=== PATIENT | male | born 1955 | race Caucasian/White ===

== ENCOUNTER 2024-06-08 03:44 | Emergency (ER) | payer OTHER, SELFPAY ==
--- NOTE | ~2024-06-08 | XR_ITS ---
EXAMINATION: XR chest 1V portable DATE: 06/08/2024 04:26 INDICATION: Chest pain TECHNIQUE: frontal view of the chest was obtained. COMPARISON: Chest radiograph dated 01/01/2010 FINDINGS: Mild increased initial pattern mid to lower and right lower lung zones. No pleural effusion or pneumo thorax. The cardiomediastinal silhouette is within normal limits for AP technique. IMPRESSION: 1. Mild increased initial pattern in the left mid to lower and right lower lung zone consistent with mild pulmonary edema with differential including less likely atelectasis or pneumonia. Reviewed, dictated and finalized at location A. DING CLEANER IMPRESSION: 1. Mild increased initial pattern in the left mid to lower and right lower lung zone consistent with mild pulmonary edema with differential including less lik tita atelectasis or pneumonia.
--- NOTE | ~2024-06-08 | CT_ITS ---
EXAMINATION: CTA chest PE protocol DATE: 06/08/2024 05:53 INDICATION: Chest pain TECHNIQUE: Computed tomography (CT) pulmonary angiogram of the chest was performed with 100 mL Omnipa que-350 intravenous contrast. Additional 3D reconstructions utilizing coronal maximum intensity proje ction (MIP) were performed. Automated exposure control and iterative reconstruction technique were em ployed. The dose-length product was 505.28 mGy-cm. COMPARISON: None FINDINGS: No pulmonary embolism. Mild emphysema. Consolidation in the superior segment of the lingula, a couple smaller regions of consolidation and groundglass opacities in the basilar left lower lobe and region s of tree-in-bud opacities in the right lower lobe consistent with multifocal pneumonia. Calcified ri ght upper lobe nodule consistent with old granulomatous disease. Diffuse bronchial wall thickening. H eart size is normal. No pericardial effusion. Thoracic aorta is normal in caliber. No pathologically enlarged thoracic lymphadenopathy. Visualized upper abdomen is unremarkable. Severe lower cervical an d moderate thoracic spondylosis. IMPRESSION: 1. No pulmonary embolism. 2. Bronchitis and multifocal pneumonia. Reviewed, dictated and finalized at location A. S MANAGER
[2024-06-08 03:44] VITALS: BP 120/85; PULSE 79; RESP 13; TEMP 36.5; O2SAT 96
[2024-06-08 03:49] VITALS: PULSE 75; O2SAT 97
--- NOTE | 2024-06-08 03:49 | ECG_ITS ---
Test Date: 2024-06-08 03:53:52 Measurements Intervals [place] Rate: 72 P: 0 OR: 0 QRS: 62 QRSD: 114 T: 51 QT: 418 QTc: 460 Interpretive Statements SINUS RHYTHM INTRAVENTRICULAR CONDUCTION DELAY BORDERLINE ST ABNORMALITY- INFERIOR LEADS BASELINE ARTIFACT- I, II, III, AVR, AVL, AVF, V1-V6 BORDERLINE ECG No previous ECG available for comparison Electronically Signed On 06-08-2024 06:19:23 INSPECTOR AIDE by Marc De La Rosa D.O.
[2024-06-08 03:57] LABS: Basophils Absolute Auto 0.1 K/mm3 (0.0-0.1); Basophils Percent Auto 0.7 % (0.2-1.2); Eosinophils Absolute Auto 0.2 K/mm3 (0-0.3); Eosinophils Percent Auto 1.5 % (0-4.4); Hemoglobin 11.1 g/dL (14.0-18.0); Immature Granulocyte Absolute 0.05 K/mm3 (0.00-0.031); Immature Granulocyte Percent A 0.4 % (0-0.5); Lymphocytes Absolute Auto 1.81 K/mm3 (0.9-3.2); Lymphocytes Percent Auto 13.5 % (18.3-44.2); Mean Corpuscular HGB Conc 32.6 g/dl (32-36); Mean Corpuscular Hemoglobin 29.8 pg (26-34); Mean Corpuscular Volume 91.4 fl (80-100); Mean Platelet Volume 10.7 fl (7.4-10.4); Monocytes Absolute Auto 1.4 K/mm3 (0.1-0.6); Monocytes Percent Auto 10.5 % (2.6-8.5); Neutrophils Absolute Auto 9.9 K/mm3 (1.3-6.7); Neutrophils Percent Auto 73.4 % (45.5-73.1); Platelet Count Result 328 k/mm3 (150-375); Red Blood Count 3.72 M/mm3 (4.6-6.20); Red Cell Distribution Width 14.6 % (11.5-14.5); White Blood Count 13.5 K/mm3 (4.5-10.0)
[2024-06-08] MEDS: MORPHINE SULFATE (*CRX) 4 MG/ML INJ IV PUSH (03:58)
--- NOTE | 2024-06-08 04:02 | ED.GENADULT ---
HPI - General Adult General Chief complaint: Chest Pain <Michael Galarza MD - Last Filed: 06/08/24 06:13> Stated complaint: CHEST PAIN <Michael Galarza MD - Last Filed: 06/08/24 06:13> Time Seen by Provider: 06/08/24 03:47 <Michael Galarza MD - Last Filed: 06/08/24 06:13> History of Present Illness HPI narrative: Patient is a 68-year-old gentleman who presents emergency department with chief complaint of chest pain. Patient states that he started having left-sided chest pain called EMS was given aspirin and use nitroglycerin in route. Patient reports he has history of COPD reports he has no prior history of cardiac disease the patient reports the pain is a squeezing like pain and also has a sharp component. The patient reports no trauma denies cough or respiratory symptoms. <Michael Galarza MD - Last Filed: 06/08/24 06:13> Related Data Allergies/adverse reactions: Allergies Allergy/AdvReac Type Severity Reaction Status Date / Time No Known Allergies Allergy Unknown Verified 06/08/24 03:48 <Michael Galarza MD - Last Filed: 06/08/24 06:13> Review of Systems Review of Systems: A 10 system review of systems was completed on the patient and is negative except for what is stated in the HPI. Nursing and ancillary documentation was reviewed. <Michael Galarza MD - Last Filed: 06/08/24 06:13> Exam Narrative: GENERAL: Well-appearing, well-nourished, and in no acute distress. HEAD: Normocephalic, atraumatic. EYES: PERRLA and EOMI. ENT: Nares clear, no rhinorrhea or epistaxis. Mucous membranes moist. NECK: Supple. CHEST: Clear to auscultation. No respiratory distress. HEART: Regular rate and rhythm. No murmur heard. Normal peripheral pulses. ABDOMEN: Soft, nontender, nondistended, normal active bowel sounds. EXTREMITIES: Normal range of motion. No edema. SKIN: Warm, dry, no rash. NEURO: No focal deficits. Alert and oriented x3. PSYCH: Normal mood and affect. <Michael Galarza MD - Last Filed: 06/08/24 06:13> Course Course Emergency Course: Patient is signed out to me pending 2nd troponin as well as interpretation of CT scan. Second troponin remains within normal limits. CT scan does show multifocal pneumonia as well as bronchitis. Patient is reassessed at bedside approximately 735. He states he is starting to have some chest pain again. Will order analgesic medication for this. his CURB65 score is 2 and we discussed that either inpatient admission or outpatient care with close follow-up would be a reasonable choice. Patient has family members at bedside and he states he would prefer to trial outpatient therapy. he has care through the [place] where he can follow up. calculated DRIP score = 2 (for underlying resp condition and being on an H2/PPI). Will give azithromycin, especially given underlying COPD. First dose given here with the rest of the course prescribed. Discharged in stable condition. <Jenny Armendariz MD - Last Filed: 06/08/24 18:14> Vital Signs Vital signs: Vital Signs Temperature 97.7 F 06/08/24 03:44 Pulse Rate 79 06/08/24 03:44 Respiratory Rate 13 06/08/24 03:44 Blood Pressure 120/85 06/08/24 03:44 Pulse Oximetry 96 06/08/24 03:44 Oxygen Delivery Room Air 06/08/24 03:44 Temperature 97.7 F 06/08/24 03:44 Pulse Rate 65 06/08/24 07:15 Respiratory Rate 17 06/08/24 07:15 Blood Pressure 136/78 06/08/24 07:15 Pulse Oximetry 100 06/08/24 07:15 Oxygen Delivery Room Air 06/08/24 03:49 <Michael Galarza MD - Last Filed: 06/08/24 06:13> Vital Signs Temperature 97.7 F 06/08/24 03:44 Pulse Rate 79 06/08/24 03:44 Respiratory Rate 13 06/08/24 03:44 Blood Pressure 120/85 06/08/24 03:44 Pulse Oximetry 96 06/08/24 03:44 Oxygen Delivery Room Air 06/08/24 03:44 Temperature 97.7 F 06/08/24 03:44 Pulse Rate 65 06/08/24 07:15 Respiratory Rate 17 06/08/24 07:15 Blood Pressure 136/78 06/08/24 07:15 Pulse Oximetry 100 06/08/24 07:15 Oxygen Delivery Room Air 06/08/24 03:49 <Jenny Armendariz MD - Last Filed: 06/08/24 18:14> Medical Decision Making MDM Narrative Medical decision making narrative: Differential diagnosis includes ACS, pulmonary embolism, pneumothorax, pneumonia EKG showed no acute ischemic changes <Michael Galarza MD - Last Filed: 06/08/24 06:13> Vital Signs Vital Signs: Vital Signs Temperature 97.7 F 06/08/24 03:44 Pulse Rate 79 06/08/24 03:44 Respiratory Rate 13 06/08/24 03:44 Blood Pressure 120/85 06/08/24 03:44 Pulse Oximetry 96 06/08/24 03:44 Oxygen Delivery Room Air 06/08/24 03:44 Temperature 97.7 F 06/08/24 03:44 Pulse Rate 65 06/08/24 07:15 Respiratory Rate 17 06/08/24 07:15 Blood Pressure 136/78 06/08/24 07:15 Pulse Oximetry 100 06/08/24 07:15 Oxygen Delivery Room Air 06/08/24 03:49 <Michael Galarza MD - Last Filed: 06/08/24 06:13> Vital Signs Temperature 97.7 F 06/08/24 03:44 Pulse Rate 79 06/08/24 03:44 Respiratory Rate 13 06/08/24 03:44 Blood Pressure 120/85 06/08/24 03:44 Pulse Oximetry 96 06/08/24 03:44 Oxygen Delivery Room Air 06/08/24 03:44 Temperature 97.7 F 06/08/24 03:44 Pulse Rate 65 06/08/24 07:15 Respiratory Rate 17 06/08/24 07:15 Blood Pressure 136/78 06/08/24 07:15 Pulse Oximetry 100 06/08/24 07:15 Oxygen Delivery Room Air 06/08/24 03:49 <Jenny Armendariz MD - Last Filed: 06/08/24 18:14> Lab Data Result diagrams: 06/08/24 03:52 06/08/24 03:52 <Michael Galarza MD - Last Filed: 06/08/24 06:13> Labs: Lab Results 06/08/24 06/08/24 Range/Units 03:52 06:51 WBC 13.5 H (4.5-10.0) K/mm3 RBC 3.72 L (4.6-6.20) M/mm3 Hgb 11.1 L (14.0-18.0) g/dL Hct 34.0 L (42.0-52.0) % MCV 91.4 (80-100) fl MCH 29.8 (26-34) pg MCHC 32.6 (32-36) g/dl RDW 14.6 H (11.5-14.5) % Plt Count 328 (150-375) k/mm3 MPV 10.7 H (7.4-10.4) fl Immature Gran % (Auto) 0.4 (0-0.5) % Neut % (Auto) 73.4 H (45.5-73.1) % Lymph % (Auto) 13.5 L (18.3-44.2) % Iron % (Auto) 10.5 H (2.6-8.5) % Eos % (Auto) 1.5 (0-4.4) % Baso % (Auto) 0.7 (0.2-1.2) % Lymph # (Auto) 1.81 (0.9-3.2) K/mm3 Iron # (Auto) 1.4 H (0.1-0.6) K/mm3 Eos # (Auto) 0.2 (0-0.3) K/mm3 Baso # (Auto) 0.1 (0.0-0.1) K/mm3 Abs Immat Gran (auto) 0.05 H (0.00-0.031) K/mm3 Absolute Neuts (auto) 9.9 H (1.3-6.7) K/mm3 Absolute Nucleated RBC 0.000 (0.0-0.012) K/mm3 Nucleated RBC % 0.0 (0.0-0.2) % PT 13.2 (11.1-14.7) Seconds INR 1.0 APTT 28.9 (22.3-36.8) Seconds Sodium 136 L (137-145) mmol/L Potassium 4.6 (3.4-5.0) mmol/L Chloride 99 (98-107) mmol/L Carbon Dioxide 29 (22-30) mmol/L Anion Gap 8 (4-12) mmol/L BUN 23 H (9-20) mg/dL Creatinine 1.20 (0.7-1.3) mg/dL Estim Creat Clear Calc 62 ml/min Estimated GFR 60 (59 - ) Glucose 140 H (65-110) mg/dL Calcium 8.4 (8.4-10.2) mg/dL Total Bilirubin 0.4 (0.2-1.3) mg/dL AST 21 (17-59) U/L ALT 18 (6-50) U/L Alkaline Phosphatase 104 (38-126) U/L Troponin I < 0.012 < 0.012 (0.000-0.034) ng/mL Total Protein 7.0 (6.3-8.2) g/dL Albumin 4.0 (3.5-5.1) g/dL Lipase 105 (23-300) U/L <Michael Galarza MD - Last Filed: 06/08/24 06:13> Lab Results 06/08/24 06/08/24 Range/Units 03:52 06:51 WBC 13.5 H (4.5-10.0) K/mm3 RBC 3.72 L (4.6-6.20) M/mm3 Hgb 11.1 L (14.0-18.0) g/dL Hct 34.0 L (42.0-52.0) % MCV 91.4 (80-100) fl MCH 29.8 (26-34) pg MCHC 32.6 (32-36) g/dl RDW 14.6 H (11.5-14.5) % Plt Count 328 (150-375) k/mm3 MPV 10.7 H (7.4-10.4) fl Immature Gran % (Auto) 0.4 (0-0.5) % Neut % (Auto) 73.4 H (45.5-73.1) % Lymph % (Auto) 13.5 L (18.3-44.2) % Iron % (Auto) 10.5 H (2.6-8.5) % Eos % (Auto) 1.5 (0-4.4) % Baso % (Auto) 0.7 (0.2-1.2) % Lymph # (Auto) 1.81 (0.9-3.2) K/mm3 Iron # (Auto) 1.4 H (0.1-0.6) K/mm3 Eos # (Auto) 0.2 (0-0.3) K/mm3 Baso # (Auto) 0.1 (0.0-0.1) K/mm3 Abs Immat Gran (auto) 0.05 H (0.00-0.031) K/mm3 Absolute Neuts (auto) 9.9 H (1.3-6.7) K/mm3 Absolute Nucleated RBC 0.000 (0.0-0.012) K/mm3 Nucleated RBC % 0.0 (0.0-0.2) % PT 13.2 (11.1-14.7) Seconds INR 1.0 APTT 28.9 (22.3-36.8) Seconds Sodium 136 L (137-145) mmol/L Potassium 4.6 (3.4-5.0) mmol/L Chloride 99 (98-107) mmol/L Carbon Dioxide 29 (22-30) mmol/L Anion Gap 8 (4-12) mmol/L BUN 23 H (9-20) mg/dL Creatinine 1.20 (0.7-1.3) mg/dL Estim Creat Clear Calc 62 ml/min Estimated GFR 60 (59 - ) Glucose 140 H (65-110) mg/dL Calcium 8.4 (8.4-10.2) mg/dL Total Bilirubin 0.4 (0.2-1.3) mg/dL AST 21 (17-59) U/L ALT 18 (6-50) U/L Alkaline Phosphatase 104 (38-126) U/L Troponin I < 0.012 < 0.012 (0.000-0.034) ng/mL Total Protein 7.0 (6.3-8.2) g/dL Albumin 4.0 (3.5-5.1) g/dL Lipase 105 (23-300) U/L <Jenny Armendariz MD - Last Filed: 06/08/24 18:14> Discharge Plan Discharge Clinical Impression: Chest pain, Bronchitis, Multifocal pneumonia <Michael Galarza MD - Last Filed: 06/08/24 06:13> Patient Disposition: Home, Self-Care <Michael Galarza MD - Last Filed: 06/08/24 06:13> Condition: Stable <Michael Galarza MD - Last Filed: 06/08/24 06:13> Instructions: Antibiotic Form, Chest Pain (DC), Chronic Bronchitis (ED), Pneumonia (ED) <Michael Galarza MD - Last Filed: 06/08/24 06:13> Additional Instructions: As we discussed, you have evidence of multifocal pneumonia and bronchitis on your CT scan. He received the 1st dose of her antibiotic in the emergency department with the rest of the course prescribed. You can also use the acetaminophen/ Tylenol and ibuprofen for other pain is symptoms related to this. follow-up with your primary care physician through the [place]. Your chest pain is likely related to this but, if you need to see a dot etcher apprentice, should either follow up through the [place] for this work up or the name of an alternative dot etcher apprentice is listed below. Pneumonia often takes awhile to recover from, often weeks. Return to the emergency department if you have any new or worsening symptoms As, if not improving you may require IV antibiotics or additional imaging or oxygen supplementation, etc.. <Michael Galarza MD - Last Filed: 06/08/24 06:13> Prescriptions: New azithromycin 500 mg tablet 500 mg PO DAILY 5 Days Qty: 5 0RF ibuprofen 600 mg tablet 600 mg PO TID PRN (Reason: pain) Qty: 30 0RF acetaminophen 500 mg capsule 1,000 mg PO Q6H PRN (Reason: pain) Qty: 30 0RF <Michael Galarza MD - Last Filed: 06/08/24 06:13> Follow-up/Referrals: Lorena Hazel DO [Physician] - (cardiology) PHYSICIAN,PEDIGREE RESEARCHER [Primary Care Provider] - <Michael Galarza MD - Last Filed: 06/08/24 06:13> Stand Alone Forms: Work/School Release IP <Michael Galarza MD - Last Filed: 06/08/24 06:13> Time of Disposition: 07:44 <Michael Galarza MD - Last Filed: 06/08/24 06:13> 07:44 <Jenny Armendariz MD - Last Filed: 06/08/24 18:14>
[2024-06-08 04:07] LABS: Alanine Aminotransferase 18 U/L (6-50); Alkaline Phosphatase 104 U/L (38-126); Anion Gap 8 mmol/L (4-12); Aspartate Amino Transferase 21 U/L (17-59); Bilirubin,Total 0.4 mg/dL (0.2-1.3); Blood Urea Nitrogen 23 mg/dL (9-20); Calcium 8.4 mg/dL (8.4-10.2); Carbon Dioxide 29 mmol/L (22-30); Chloride 99 mmol/L (98-107); Estimated CRCL calculation 62 ml/min; Estimated Glomerular Filt Rate 60; Glucose 140 mg/dL (65-110); Lipase 105 U/L (23-300); Potassium 4.6 mmol/L (3.4-5.0); Sodium 136 mmol/L (137-145)
[2024-06-08 04:11] LABS: Prothrombin Time 13.2 Seconds (11.1-14.7)
[2024-06-08 04:12] LABS: Partial Thromboplastin Time 28.9 Seconds (22.3-36.8)
[2024-06-08 04:18] LABS: Troponin I < 0.012 ng/mL (0.000-0.034)
--- NOTE | 2024-06-08 05:31 | PC.NURSE ---
patient states his pain is now a 3. patient is resting on ER stretcher.
--- NOTE | 2024-06-08 06:46 | ECG_ITS ---
Test Date: 2024-06-08 06:51:23 Measurements Intervals [place] Rate: 68 P: -52 NM: 171 QRS: 50 QRSD: 110 T: 49 QT: 410 QTc: 438 Interpretive Statements SINUS RHYTHM INTRAVENTRICULAR CONDUCTION DELAY BASELINE ARTIFACT- I, III, V6 BORDERLINE ECG Compared to ECG 06/08/2024 03:53:52 NO SIGNIFICANT CHANGE Electronically Signed On 06-08-2024 09:23:11 VERTICAL MILL OPERATOR by Marc De La Rosa D.O.
[2024-06-08 07:15] VITALS: BP 136/78; PULSE 65; RESP 17; O2SAT 100
[2024-06-08 07:26] LABS: Troponin I < 0.012 ng/mL (0.000-0.034)
[2024-06-08] MEDS: HYDROcodone/acetaminophen (*CRX) 5-325 MG TABLET 1 TAB PO (07:55)
[2024-06-08] MEDS: KETOROLAC 30 MG/ML VIAL (*BKC) 15 MG IM (07:55)
[2024-06-08] MEDS: AZITHROMYCIN 250 MG TABLET 500 MG PO (07:56)
== END 2024-06-08 08:10 | disposition home or self-care (01) ==
PROVIDERS: Emergency Medicine; Emergency Provider Student in an Organized Health Care Education/Training Program
DX: J18.9 Pneumonia, unspecified organism (principal); J44.89 Other specified chronic obstructive pulmonary disease; I45.9 Conduction disorder, unspecified; R94.31 Abnormal electrocardiogram [ECG] [EKG]
CPT/HCPCS: 36415; 71045; 71275; 80053; 83690; 84484; 85025; 85610; 85730; 93005; 96372; 96374; 99284; A9270; J1885; J2270; Q9967